=== PATIENT | female | born 1975 | race African-American/Black ===

== ENCOUNTER 2016-06-07 08:36 | Emergency (ER) | payer BC ==
[~2016-06-07] VITALS: Ht 157.5 cm; Wt 84.0 kg
[2016-06-07 08:42] VITALS: BP 114/78; PULSE 78; RESP 18; TEMP 98.1; O2SAT 100
--- NOTE | 2016-06-07 09:31 | PD ---
HPI Chief Complaint: Related Problem Time Seen by Provider: 09:14 Travel History International Travel<30 days: No Contact w/Intl Traveler<30days: No Traveled to known affect area: No History of Present Illness HPI Patient presents for a test. States she has done 3 home urine tests. 2 were +1 was negative. Last menses mid March. Reports 3 pregnancies one child and 2 miscarriages. Reports lower abdominal discomfort for 2-3 weeks. Reports last menses in mid March. Appears to have reported to triage that her abdominal pain was 10 out of 10 so that she could get back and be seen more quickly. Initially evaluated by my colleague who wanted to do a urinary test first prior to any blood work. Patient was not acceptable to this idea and demanded to see a different physician. PFSH Past Medical History Autoimmune Disease: No Blood Disorders: No Cancer: Yes Cardiovascular Problems: No Diminished Hearing: No Endocrine: No Gastrointestinal Disorders: No Genitourinary: No Immune Disorder: No Musculoskeletal: No Neurologic: No Psychiatric: No Reproductive: Yes (ENDOMETREOSIS) Respiratory: No Influenza Vaccination: No PNEUMOCCOCAL Vaccine (Year): 1 ?: LMP: 04/08/16 : 3 Para: 1 Miscarriage: 2 : 0 Ovarian Cysts: Yes Past Surgical History AICD: No Appendectomy: Yes Arteriovenous Shunt: No Gynecologic Surgery: Yes (RT TUBE & OVARY REMOVED, ENDOMETRIOSIS SX) Insulin Pump: No Joint Replacement: No Pacemaker: No Other Surgery: Yes (R. OVARY REMOVED) Social History Alcohol Use: Yes ("OCCASIONAL") Tobacco Use: No Substance Use: No Allergies-Medications (Allergen,Severity, Reaction): Coded Allergies: No Known Allergies (Verified , 06/07/16) Reported Meds & Prescriptions Reported Meds & Active Scripts Active No Active Prescriptions or Reported Medications Review of Systems General / Constitutional: No: Fever Eyes: No: Visual changes HENT: No: Headaches Cardiovascular: No: Chest Pain or Discomfort Respiratory: No: Shortness of Breath Gastrointestinal: Positive: Abdominal Pain Genitourinary: No: Dysuria Musculoskeletal: No: Pain Skin: No Rash Neurologic: No: Weakness Psychiatric: No: Depression Endocrine: No: Polydipsia Hematologic/Lymphatic: No: Easy Bruising Physical Exam Narrative GENERAL: Well-nourished, well-developed patient. SKIN: Warm and dry. HEAD: Normocephalic. EYES: No scleral icterus. No injection or drainage. NECK: Supple, trachea midline. No JVD or lymphadenopathy. CARDIOVASCULAR: Regular rate and rhythm without murmurs, gallops, or rubs. RESPIRATORY: Breath sounds equal bilaterally. No accessory muscle use. GASTROINTESTINAL: Abdomen soft, non-tender, nondistended. MUSCULOSKELETAL: No cyanosis, or edema. BACK: Nontender without obvious deformity. No CVA tenderness. Data Data Last Documented VS Vital Signs Date Time Temp Pulse Resp B/P Pulse Ox O2 Delivery O2 Flow Rate FiO2 06/07/16 08:42 98.1 78 18 114/78 100 Room Air Orders Beta Hcg (Quant/Titer) (06/07/16 09:14) Labs Laboratory Tests Test 06/07/16 09:26 Human Chorionic Gonadotropin, 8 MIU/ML Quant MDM Medical Decision Making Medical Screen Exam Complete: Yes Emergency Medical Condition: Yes Differential Diagnosis Dysmenorrhea, , miscarriage, constipation Narrative Course Assessment and plan discussed the patient at bedside. Diagnosis Primary Impression: Dysmenorrhea Additional Instructions: Follow-up with PCP. Med/Other Pt SpecificInfo: No Meds Exist/No RX given Scripts No Active Prescriptions or Reported Meds Disposition: 01 DISCHARGE HOME Condition: Good Manuel Sotomayor MD Jun 07, 2016 09:31
[2016-06-07 09:56] LABS: BETA HCG QUANT 8 MIU/ML (0-5)
[2016-06-07 10:23] VITALS: BP 110/80
== END 2016-06-07 10:26 | disposition home or self-care (01) ==
LOC: PHED 08:36
DX: N94.6 Dysmenorrhea, unspecified (principal)
CPT/HCPCS: 84702; 99282